=== PATIENT | female | born 1960 | race Caucasian/White ===

== ENCOUNTER → 2017-01-12 | Outpatient (CLI) | payer BC ==
[~2017-01-12] MED LIST: ALTOPREV10 MG PO; COUMADIN10 MG PO; DIABETA 5MG5 MG/TAB PO; JANUVIA100 MG PO; [UNRECOGNIZED DRUG - OTHER] PO
== END ==
LOC: MC.RAD 13:06
DX: Z12.31 Encounter for screening mammogram for malignant neoplasm of breast (principal)

== ENCOUNTER → 2018-01-25 | Outpatient (CLI) | payer BC | LOC: MC.RAD 15:40 | DX: Z12.31 Encounter for screening mammogram for malignant neoplasm of breast (principal) ==

== ENCOUNTER → 2019-02-26 | Outpatient (CLI) | payer BC | LOC: MC.RAD 14:42 | DX: Z12.31 Encounter for screening mammogram for malignant neoplasm of breast (principal) ==

== ENCOUNTER → 2020-03-30 | Outpatient (CLI) | payer BC | LOC: MC.RAD 13:29 | DX: Z12.31 Encounter for screening mammogram for malignant neoplasm of breast (principal) ==

== ENCOUNTER → 2023-04-27 | Outpatient (CLI) | payer BC ==
[2005-07-12 15:23] VITALS: BP 131/65; PULSE 52; TEMP 98.4
== END ==
LOC: MC.RAD 15:26
DX: Z12.31 Encounter for screening mammogram for malignant neoplasm of breast (principal)